=== PATIENT | male | born 1935 | race African-American/Black ===

== ENCOUNTER 2017-05-15 14:02 | Emergency (ER) | payer MEDICARE, MEDICAID ==
[~2017-05-15] VITALS: Ht 180.3 cm; Wt 81.6 kg
[~2017-05-15 14:02] MED LIST: ALBUTEROL2.5 MG/3 M INH; AMPICILLIN TRI500 MG GT; ASPIR 8181 MG GT; DILANTIN-1125 MG/5 M GT; DIOVAN80 MG GT; Dextrose IV; FAMOTIDINE40 MG GT; FUROSEMIDE40 MG ORAL; GLYTROL250 ML PO; ISOSOURCE 1.51000 ML GT; KEPPRA LIQ100 MG/1 M GT; KEPPRA500 MG GT; METFORMIN HCL1000 M1 GT; MOM30 ML GT; NOVOLOG100 UNIT/3 SUBQ; PEPCID40 MG GT; POTASSIUM CHLO20 ME2 GT; PROTONIX40 M2 GT; ROCEPHIN1 GM IV; TYLENOL650 MG/20. GT; VITAMIN B-1100 MG GT
[2017-05-15 14:23] VITALS: BP 144/83
--- NOTE | 2017-05-15 16:14 | Emergency Room Report ---
History of Present Illness General Chief Complaint: Malfunctioning Gastric Tube Source: Medical Record, EMS Present Illness HPI This patient presents from a intermediate facility. He is nonverbal at baseline. He presents for a dislodged G-tube. There are no other complaints. Allergies: Coded Allergies: No Known Allergies (Verified , N/A, 03/29/06) Patient History Past Medical History: HTN, SD, CAD, CHF, COPD, GERD, CVA/TIA, dementia Social History: Denies: smoking, alcohol use, drug use Reviewed Nursing Documentation: PMH: Agreed, PSxH: Agreed Nursing Documentation-PMH Past Medical History: No History, Except For Hx Cardiac Problems: Yes - Heart Failure Hx Hypertension: Yes - Anemia Hx COPD: Yes Hx Diabetes: Yes Hx Cancer: No Hx Neurological Problems: Yes Hx Cerebrovascular Accident: Yes Hx Seizures: Yes Review of Systems All Other Systems: limited - Non-verbal Physical Exam Vital Signs Date Time Temp Pulse Resp B/P (MAP) Pulse Ox O2 Delivery O2 Flow Rate FiO2 05/15/17 13:55 97.7 84 20 144/83 95 Room Air Sp02 EP Interpretation: reviewed, normal General Appearance: no apparent distress, alert, GCS 15, non-toxic Head: normocephalic, atraumatic ENT: no angioedema Neck: full range of motion Respiratory: lungs clear, normal breath sounds, no respiratory distress, no retraction, no accessory muscle use Cardiovascular #1: regular rate, rhythm Gastrointestinal: normal bowel sounds, non tender, soft, non-distended, no guarding, no rebound, other - G-tube site with avulsed skin c/w trauma. Rectal: deferred Musculoskeletal: back normal, gait/station normal, normal range of motion, non- tender Neurologic: alert, other - At baseline. Contracted non-verbal. Medical Decision Making Diagnostic Impression: Primary Impression: Dislodged gastrostomy tube ER Course This patient presents for G-tube replacement. The G-tube was replaced in the typical manner without complication or incident. A KUB was obtained which showed Gastrografin consistent with appropriate placement in the stomach. The patient was returned to the intermediate facility. Other X-Ray Diagnostic Results Other X-Ray Diagnostic Results : X-Ray ordered: KUB # of Views/Limited Vs Complete: 1 View Indication: Other - G-tube placement EP Interpretation: Yes Interpretation: other - C/W G-tube in stomache. Impression: Other - C/W appropriate G-tube placement Last Vital Signs Date Time Temp Pulse Resp B/P (MAP) Pulse Ox O2 Delivery O2 Flow Rate FiO2 05/15/17 14:23 97.7 86 20 144/83 95 Room Air Status: improved Disposition: HOME, SELF-CARE Condition: Improved DANNY ESCAMILLA D.O. May 15, 2017 16:14
--- NOTE | 2017-05-15 16:36 | Diagnostic Imaging Report ---
Indication: Abdominal pain Comparison: None Single view of the abdomen obtained Findings: Gastrostomy tube is in the body of the stomach. There is contrast material within the stomach and small bowel. No leak identified. Impression: Unremarkable gastrostomy
[2017-05-15 17:29] VITALS: BP 152/82
[2017-05-15 17:42] VITALS: BP 152/82
== END 2017-05-15 17:43 | disposition home or self-care (01) ==
LOC: EDBD 14:02 → EMR 16:16
DX: Z43.1 Encounter for attention to gastrostomy (principal); I10 Essential (primary) hypertension; I25.10 Atherosclerotic heart disease of native coronary artery without angina pectoris; I25.2 Old myocardial infarction; I50.9 Heart failure, unspecified; Z86.73 Personal history of transient ischemic attack (TIA), and cerebral infarction without residual deficits; F03.90 Unspecified dementia, unspecified severity, without behavioral disturbance, psychotic disturbance, mood disturbance, and anxiety; K21.9 Gastro-esophageal reflux disease without esophagitis
CPT/HCPCS: 43760; 74000; 99284; Q9963